=== PATIENT | male | born 1940 | race Caucasian/White ===

== ENCOUNTER → 2017-06-27 | Outpatient (CLI) | payer MEDICARE, BC ==
[~2017-06-27] MED LIST: ALEVE 220MG220 MG PO; ALTACE 10MG TAB10 MG PO; ASPIRIN E.C. 8181 MG PO; LASIX 20MG TABL20 MG PO; LIPITOR 40MG TA40 MG PO; NEURONTIN100 MG/CAP PO; NEXIUM 40MG40 MG PO; PLAVIX 75MG TAB75 MG PO; TOPROL XL 25MG25 MG PO
== END ==
LOC: MHCPAIN 12:01
DX: G89.29 Other chronic pain (principal); M47.27 Other spondylosis with radiculopathy, lumbosacral region; M53.3 Sacrococcygeal disorders, not elsewhere classified; M96.1 Postlaminectomy syndrome, not elsewhere classified; Z87.891 Personal history of nicotine dependence; Z79.82 Long term (current) use of aspirin
CPT/HCPCS: G0463

== ENCOUNTER 2017-07-04 12:06 | Outpatient (CLI) | payer MEDICARE, BC ==
[~2017-07-04] VITALS: Ht 172.7 cm; Wt 108.5 kg
[2017-07-04 12:44] VITALS: BP 143/96; PULSE 65
[2017-07-04 14:00] VITALS: BP 141/85; PULSE 59
[2017-07-04 14:15] VITALS: BP 141/85; PULSE 60
[2017-07-04 14:30] VITALS: BP 154/87; PULSE 59
[2017-07-04 14:45] VITALS: BP 98/72; PULSE 59
[2017-07-04 15:10] VITALS: BP 111/88; PULSE 59
== END 2017-07-04 16:22 | disposition home or self-care (01) ==
LOC: COL.RAD 12:06
DX: M48.06 Spinal stenosis, lumbar region (principal); M47.816 Spondylosis without myelopathy or radiculopathy, lumbar region; M41.86 Other forms of scoliosis, lumbar region
CPT/HCPCS: Q9965

== ENCOUNTER → 2017-08-08 | Outpatient (CLI) | payer MEDICARE, BC | LOC: MHCPAIN 11:04 | DX: G89.29 Other chronic pain (principal); M47.27 Other spondylosis with radiculopathy, lumbosacral region; M96.1 Postlaminectomy syndrome, not elsewhere classified | CPT/HCPCS: G0463 ==

== ENCOUNTER → 2017-12-25 | Outpatient (CLI) | payer MEDICARE, BC | LOC: MHCPAIN 11:08 | DX: G89.29 Other chronic pain (principal); M47.27 Other spondylosis with radiculopathy, lumbosacral region; M53.3 Sacrococcygeal disorders, not elsewhere classified; M96.1 Postlaminectomy syndrome, not elsewhere classified; Z87.891 Personal history of nicotine dependence | CPT/HCPCS: G0463 ==